=== PATIENT | female | born 1995 | race Caucasian/White ===

== ENCOUNTER 2023-04-01 07:01 | Inpatient (IN) | payer OTHER ==
[~2023-04-01 07:01] MED LIST: Bupivacaine 0.25% 10 ML SDV ONE; Lidocaine 1% 10 ML MDV ONE
[2023-04-01] MEDS ORDERED: Ondansetron 4 MG/2 ML SDV IVPUSH PRN (07:13)
[2023-04-01] MEDS ORDERED: Nalbuphine 10 MG/0.5 ML Syringe IVPUSH PRN (07:13)
[2023-04-01] MEDS ORDERED: Lidocaine 1% 50 ML MDV INJECT ONE (07:13)
[2023-04-01] MEDS ORDERED: Acetaminophen 325 MG Tab PO PRN ×2 (07:13→22:20)
[2023-04-01] MEDS ORDERED: Calcium Carbonate 500 MG Tab.Chew PO PRN (07:13)
[2023-04-01] MEDS ORDERED: Lactated Ringers 1,000 ML IV SCH (07:15)
[2023-04-01] MEDS ORDERED: Oxytocin/Lactated Ringers 10 UNIT/1,000 ML BAG IV SCH ×3 (07:15→22:20)
[2023-04-01 07:38] LABS: BASOPHILS ABSOLUTE AUTO 0.05 K/mm3 (0.01-0.08); BASOPHILS PERCENT AUTO 0.6 % (0.1-1.2); EOSINOPHILS ABSOLUTE AUTO 0.09 K/mm3 (0.04-0.36); HEMATOCRIT 36.2 % (34.1-44.9); IMMATURE GRAN ABSOLUTE AUTO 0.02 K/mm3 (0.00-0.10); IMMATURE GRAN PERCENT AUTO 0.2 % (<=1.0); LYMPHOCYTES ABSOLUTE AUTO 2.76 K/mm3 (1.18-3.74); LYMPHOCYTES PERCENT AUTO 30.9 % (19.3-51.7); MEAN CORPUSCULAR HGB CONC 33.1 g/dl (32.2-35.5); MEAN CORPUSCULAR VOLUME 93.5 fl (79.4-94.8); MEAN PLATELET VOLUME 10.4 fl (9.4-12.3); MONOCYTES ABSOLUTE AUTO 0.61 K/mm3 (0.24-0.36); MONOCYTES PERCENT AUTO 6.8 % (4.7-12.5); NEUTROPHILS ABSOLUTE AUTO 5.39 K/mm3 (1.56-6.13); NEUTROPHILS PERCENT AUTO 60.5 % (34.0-71.1); PLATELET COUNT,PLT 200 K/mm3 (182-369); RED BLOOD CELL COUNT 3.87 M/mm3 (3.98-5.22); WHITE BLOOD CELL COUNT,WBC 8.92 K/mm3 (3.98-10.04)
[2023-04-01] MEDS ORDERED: diphenhydrAMINE 50 MG/ML SDV IVPUSH PRN (07:38)
[2023-04-01] MEDS ORDERED: ePHEDrine 50 MG/ML SDV IVPUSH PRN (07:38)
[2023-04-01] MEDS ORDERED: Bupivacaine/fentaNYL/NS 100 ML Bag EPIDUR PRN (07:38)
[2023-04-01] MEDS: fentaNYL 100 MCG/2 ML SDV EPIDUR PRN ×2 (13:04→19:00)
[2023-04-01] MEDS ORDERED: Hydrocortisone Acetate 25 MG Supp RECTAL PRN (22:20)
[2023-04-01] MEDS ORDERED: Docusate Sodium 100 MG Cap PO PRN (22:20)
[2023-04-01] MEDS ORDERED: Witch Hazel Medicated Pads 40/Jar TOP PRN (22:20)
[2023-04-01] MEDS ORDERED: Magnesium Hydroxide 400 MG/5 ML Susp 30 ML Cup PO PRN (22:20)
[2023-04-01] MEDS ORDERED: Benzocaine/Menthol 20%-0.5% Spray 78 GM Cannister TOP PRN (22:20)
[2023-04-02] MEDS: Ibuprofen 600 MG Tab PO PRN ×3 (01:15→16:07)
[2023-04-02] MEDS ORDERED: Prenatal Multivitamin with Calcium/Folic Acid/Iron Tab PO SCH (09:00)
== END 2023-04-02 16:00 | disposition home or self-care (01) | DRG 807 ==
LOC: JD.OB 07:01 → OBSVTOIN 19:07 → JD.OB 19:08
PROVIDERS: ADMIT Obstetrics & Gynecology; ATTEND Obstetrics & Gynecology
PROC: 10E0XZZ Delivery of Products of Conception, External Approach (ICD-10-PCS; principal; 2023-04-01)
PROC: 0KQM0ZZ Repair Perineum Muscle, Open Approach (ICD-10-PCS; 2023-04-01)
PROC: 0UQMXZZ Repair Vulva, External Approach (ICD-10-PCS; 2023-04-01)
PROC: 3E033VJ Introduction of Other Hormone into Peripheral Vein, Percutaneous Approach (ICD-10-PCS; 2023-04-01)
PROC: 3E0R3BZ Introduction of Anesthetic Agent into Spinal Canal, Percutaneous Approach (ICD-10-PCS; 2023-04-01)
PROC: 00HU33Z Insertion of Infusion Device into Spinal Canal, Percutaneous Approach (ICD-10-PCS; 2023-04-01)
DX: O42.02 Full-term premature rupture of membranes, onset of labor within 24 hours of rupture (principal); Z37.0 Single live birth; O26.893 Other specified pregnancy related conditions, third trimester; Z67.41 Type O blood, Rh negative; O76 Abnormality in fetal heart rate and rhythm complicating labor and delivery; O70.1 Second degree perineal laceration during delivery; O71.82 Other specified trauma to perineum and vulva; Z3A.39 39 weeks gestation of pregnancy; O69.1XX0 Labor and delivery complicated by cord around neck, with compression, not applicable or unspecified
CPT/HCPCS: 01967; 36415; 51702; 59025; 59409; 85025; 86592; 86850; 86870; 86900; 86901; A9270-GY; J1200; J2590; J3010; J3490; J7120